=== PATIENT | male | born 1995 | race Caucasian/White ===

== ENCOUNTER 2020-01-22 01:08 | Emergency (ER) | payer MEDICAID ==
[~2020-01-22] VITALS: Ht 188 cm; Wt 88.5 kg
[2020-01-22 01:26] VITALS: BP 147/82
[2020-01-22] MEDS ORDERED: cefTRIAXone SOD 1,000 MG VL IM ONE (02:45)
[2020-01-22] MEDS ORDERED: LIDOCAINE 1% HCL (LOCAL ANESTH.) INJ 20ML MDV IJ ONE (02:45)
== END 2020-01-22 03:41 | disposition home or self-care (01) ==
LOC: ER 01:10
DX: L02.415 Cutaneous abscess of right lower limb (principal)
CPT/HCPCS: 96372; 99283; J0696; J2001